=== PATIENT | male | born 1975 | race Caucasian/White ===

== ENCOUNTER 2020-07-22 12:58 | Emergency (ER) | payer OTHER ==
[2020-07-22 13:06] VITALS: RESP 18
[2020-07-22] MEDS ORDERED: LIDOCAINE 1% INJ 10MG/ML (20 ML MDV) SQ ONE (13:18)
[2020-07-22] MEDS ORDERED: DIPH,PERTUS(ACELL)TETVAC-LF 0.5 ML VIAL IM ONE (13:18)
--- NOTE | 2020-07-22 13:52 | ED ---
Head Injury HPI - General Chief complaint: Head Injury Stated complaint: facial lac Time Seen by Provider: 07/22/20 13:13 Source: patient Mode of arrival: ambulatory Limitations: no limitations - History of Present Illness Initial comments: 44yo male presenting today for cc fall matter. Patient states he was around 5 rungs up when the ladder bottom slid out from under him and it fell to the ground. Patient states that he remained on the ladder and hit his face when the ladder met the ground. patietn states he did not lose consciousness, denies head ache, neck pain, visual changes, weakness sensation deficits, he denies use of anticoagulation therapy he denies nausea right wrist is slightly tender. Otherwise denies additional complaints/concerns/injuries. - Related Data Allergies/Adverse reactions: Allergies Allergy/AdvReac Type Severity Reaction Status Date / Time No Known Allergies Allergy Verified 07/22/20 13:06 Review of Systems ROS Statement: Those systems with pertinent positive or pertinent negative responses have been documented in the HPI. ROS Other: All systems not noted in ROS Statement are negative. Past Medical History Past Medical History: Hyperlipidemia History of Any Multi-Drug Resistant Organisms: None Reported Past Surgical History: Hernia Repair Past Psychological History: No Psychological Hx Reported Smoking Status: Current every day smoker Past Alcohol Use History: None Reported Past Drug Use History: None Reported General Exam - General Exam Comments Initial Comments: General: The patient is awake and alert, in no distress Eye: +3 mm pupils are equal, round and reactive to light, extra-ocular movements are intact. No nystagmus. There is normal conjunctiva bilaterally. No signs of icterus. Ears, nose, mouth and throat: There are moist mucous membranes and no oral lesions. No raccoon no Ma sign. TM WNL Neck: The neck is supple, there is no tenderness or JVD. No midline or paraspinal tenderness to palpation of the cervical spine. Cardiovascular: There is a regular rate and rhythm. No murmur, rub or gallop is appreciated. Respiratory: Lungs are clear to auscultation, respirations are non-labored, breath sounds are equal. No wheezes, stridor, rales, or rhonchi. Gastrointestinal: Soft, non-distended, non-tender abdomen without masses or organomegaly noted. There is no rebound or guarding present. Musculoskeletal: Normal ROM, with mild tenderness of the right wrist. No snuffbox tenderness. Strength 5/5. Sensation intact. Radial pulses equal bilaterally 2+. Able to make the okay fingers crossed thumbs-up and a possible digit and thumb no evidence of wristdrop. No elbow or shoulder pain remaining joints of the upper and lower extremities without pain or limitations in range of motion Neurological: A&O x 3. CN II-XII intact, There are no obvious motor or sensory deficits. Coordination appears grossly intact. Speech is normal. Skin: Skin is warm and dry and no rashes. 1.25cm laceration medial aspect of right eyebrow vertical orientation, slight irregularity but overall linear. no foreign body identified. Psychiatric: Cooperative, appropriate mood & affect, normal judgment. Limitations: no limitations Course Vital Signs 07/22/20 07/22/20 13:02 14:49 Temperature 97.8 F 98.9 F Pulse Rate 80 82 Respiratory 18 18 Rate Blood Pressure 139/91 144/98 O2 Sat by Pulse 95 97 Oximetry Procedures - Laceration Laceration #1 Consent Obtained: verbal consent Indication: laceration Site: face Size (cm): 0 (1.25cm) Description: linear Depth: simple, single layer Anesthetic Used: lidocaine 1% Anesthesia Technique: local infiltration Amount (mls): 1 Pre-repair: wound explored, irrigated extensively, deep structures intact Type of Sutures: nylon Size of Sutures: 6-0 Number of Sutures: 3 Technique: simple, interrupted Patient Tolerated Procedure: well, no complications Medical Decision Making - Medical Decision Making 44yo male presenting for facial laceration after ladder slipped. wrist pain (mild). X-ray negative no anatomical snuffbox tenderness. Neurovascularly intact. Patient's laceration repaired CT brain negative patient denied any other areas of injury there is no neck pain on physical examination midline or paraspinal. Full range of motion without difficulty. No raccoon or Ma sign. Tympanic membranes within normal limits no focal neurological deficits patient denies any injuries to the chest abdomen back or extremities besides right wrist. patient discharged appearing well. tdap updated. Disposition Clinical Impression: Facial laceration, Fall, Right wrist pain Disposition: HOME SELF-CARE Condition: Good Instructions (If sedation given, give patient instructions): Facial Laceration (ED) Additional Instructions: Please use medication as discussed. Please follow-up with family doctor in the next 2 days. Return for suture removal in 5 days. Please return to emergency room if the symptoms increase or worsen or for any other concerns. Is patient prescribed a controlled substance at d/c from ED?: No Referrals: Anais Sanchez MD [Primary Care Provider] - 1-2 days Time of Disposition: 14:14
--- NOTE | 2020-07-22 13:58 | CT ---
EXAMINATION TYPE: CT brain wo con DATE OF EXAM: 07/22/2020 COMPARISON: None HISTORY: 44-year-old male with pain after fall from ladder, multiple facial lacerations TECHNIQUE: Examination was done in axial plane without intravenous contrast. Coronal and sagittal r econstructions performed. CT DLP: 1043.4 mGycm Automated exposure control for dose reduction was used. FINDINGS: There is no evidence of acute intracranial hemorrhage, acute ischemic changes, mass, mass-effect, or extra-axial fluid collection. There is no effacement of cerebral sulci or basal subarachnoid cister ns. There is no hydrocephalus. There is no midline shift. Dacosta-white matter distinction is preserv ed. Paranasal sinuses and mastoid air cells are well pneumatized. Orbits and globes are intact. IMPRESSION: No acute intracranial abnormality seen.
--- NOTE | 2020-07-22 14:14 | XR ---
EXAMINATION TYPE: XR wrist complete RT DATE OF EXAM: 07/22/2020 COMPARISON: NONE HISTORY: 44-year-old male with pain after fall today TECHNIQUE: 4 views FINDINGS: Some small cystic change noted within the lunate, likely intraosseous ganglion. No acute fracture, thao bluxation, or dislocation seen. IMPRESSION: No acute osseous abnormality seen.
[2020-07-22 14:53] VITALS: BP 144/98; PULSE 82; TEMP 98.9
== END 2020-07-22 14:49 | disposition home or self-care (01) ==
LOC: EC 12:58
DX: S01.81XA Laceration without foreign body of other part of head, initial encounter (principal); M25.531 Pain in right wrist; E78.5 Hyperlipidemia, unspecified; F17.200 Nicotine dependence, unspecified, uncomplicated; W19.XXXA Unspecified fall, initial encounter
CPT/HCPCS: 73110; 70450; 90715; 99284; 12011; 90471; J2001

== ENCOUNTER → 2022-06-20 | Outpatient (CLI) | payer OTHER ==
--- NOTE | 2022-06-20 11:21 | XR ---
EXAMINATION TYPE: XR knee complete RT DATE OF EXAM: 06/20/2022 10:49 AM INDICATION: Patient age:Male; 46 years old; Reason for study: M23.91; COMPARISON: None. TECHNIQUE: The Right knee(s) was examined in Frontal, lateral and oblique projections. FINDINGS: No evidence of any acute osseous pathology, soft tissue swelling, or joint effusion is no richard. Minimal Tricompartmental osteophyte formation involving the femoral condyles, tibial plateau and pat gamaliel. Mild joint space narrowing. IMPRESSION: 1. No acute osseous pathology. 2. Mild tricompartmental osteoarthritic changes.
[2022-06-20 17:53] LABS: Chol/HDL Ratio 4.43 Ratio; LDL Cholesterol,Calculated 124.5 mg/dL (0.0-131.0)
== END | disposition home or self-care (01) ==
LOC: LABWHC1 10:13 → EDSTATUS 12:02
PROVIDERS: ATTEND Family Medicine
DX: Z12.5 Encounter for screening for malignant neoplasm of prostate (principal); Z11.4 Encounter for screening for human immunodeficiency virus [HIV]; E78.5 Hyperlipidemia, unspecified; M23.91 Unspecified internal derangement of right knee
CPT/HCPCS: 36415; 80061; 83036; 84153; 87390

== ENCOUNTER → 2022-12-21 | Outpatient (CLI) | payer OTHER ==
[2022-12-21 14:24] LABS: ALT 23 U/L (10-49); AST 21 U/L (14-35); Albumin 4.8 d/dL (3.8-4.9); Albumin/Globulin Ratio 2.18 Ratio (1.60-3.17); Alkaline Phosphatase 98 U/L (41-126); Blood Urea Nitrogen 16.4 mg/dL (9.0-27.0); Calcium 9.7 mg/dL (8.7-10.3); Carbon Dioxide 26.3 mmol/L (21.6-31.8); Chloride 106 mmol/L (96-109); Chol/HDL Ratio 4.83 Ratio; Globulin 2.2 d/dL (1.6-3.3); Glucose 86 mg/dL (70-110); LDL Cholesterol,Calculated 110.6 mg/dL (0.0-131.0); Potassium 5.1 mmol/L (3.5-5.5); Sodium 142 mmol/L (135-145); Total Bilirubin 0.4 mg/dL (0.3-1.2)
== END | disposition home or self-care (01) ==
LOC: LABWHC1 08:53
PROVIDERS: ATTEND Family Medicine
DX: E78.5 Hyperlipidemia, unspecified (principal)
CPT/HCPCS: 36415; 80053; 80061

== ENCOUNTER 2023-02-06 18:07 | Emergency (ER) | payer OTHER ==
[2023-02-06 19:04] VITALS: TEMP 98.3
[2023-02-06] MEDS ORDERED: KETOROLAC 15 MG/ML 1 ML VIAL IM STA (20:15)
[2023-02-06] MEDS ORDERED: methylPREDNISolone SOD SUCCI 125 MG/2 ML VIAL IM ONE (20:15)
--- NOTE | 2023-02-06 20:15 | ED ---
Lower Extremity Injury HPI - General Chief Complaint: Extremity Injury, Lower Stated Complaint: R foot pain Time Seen by Provider: 02/06/23 19:44 Source: patient Mode of arrival: ambulatory Limitations: no limitations - History of Present Illness Initial Comments: 47-year-old male presented with chief complaint of right foot pain. Pain is mainly at the MCP joint, has been ongoing for the last 4 days. No injury or trauma. He admits to some redness and swelling. No fevers or chills. No nausea or vomiting. No history of gout. - Related Data Previous Rx's Medication Instructions Recorded Indomethacin [Indocin] 50 mg PO TID #21 cap 02/06/23 Allergies Allergy/AdvReac Type Severity Reaction Status Date / Time No Known Allergies Allergy Verified 02/06/23 19:03 Review of Systems ROS Statement: Those systems with pertinent positive or pertinent negative responses have been documented in the HPI. ROS Other: All systems not noted in ROS Statement are negative. Past Medical History Past Medical History: Hyperlipidemia History of Any Multi-Drug Resistant Organisms: None Reported Past Surgical History: Hernia Repair Past Psychological History: No Psychological Hx Reported Smoking Status: Current every day smoker Past Alcohol Use History: None Reported Past Drug Use History: None Reported General Exam Limitations: no limitations General appearance: alert, in no apparent distress Head exam: Present: atraumatic, normocephalic, normal inspection Eye exam: Present: normal appearance, EOMI Neck exam: Present: normal inspection, full ROM Respiratory exam: Absent: respiratory distress Right Foot/Toe exam: Present: full ROM, tenderness, swelling, erythema Neurovascular tendon exam: Present: no vascular compromise Neurological exam: Present: alert, oriented X3, CN II-XII intact Psychiatric exam: Present: normal affect, normal mood Skin exam: Present: warm, dry, intact, normal color. Absent: rash Course Vital Signs 02/06/23 02/06/23 19:00 20:23 Temperature 98.3 F Pulse Rate 87 69 Respiratory 20 18 Rate Blood Pressure 126/90 138/94 O2 Sat by Pulse 98 99 Oximetry Medical Decision Making - Medical Decision Making Was pt. sent in by a medical professional or institution (Dr. PA, SPECIAL PROCEDURES TECHNOLOGIST, urgent care, hospital, or detention...) When possible be specific @ -No Did you speak to anyone other than the patient for history (EMS, parent, family, police, friend...)? What history was obtained from this source @ -No Did you review nursing and triage notes (agree or disagree)? Why? @ -I reviewed and agree with nursing and triage notes Were old charts reviewed (outside hosp., previous admission, EMS record, old EKG, old radiological studies, urgent care reports/EKG's, detention records)? Report findings @ -No old charts were reviewed Differential Diagnosis (chest pain, altered mental status, abdominal pain women, abdominal pain men, vaginal bleeding, weakness, fever, dyspnea, syncope, headache, dizziness, GI bleed, back pain, seizure, CVA, palpatations, mental health, musculoskeletal)? @ -Differential Musculoskeletal Muscular strain, contusion, ligament sprain, fracture, arthritis, septic arthritis, bursitis, cellulitis, muscle spasm, nerve compression, DVT, arterial occlusion, herpes zoster, electrolyte abnormality, tumor.... This is not meant to be in all inclusive list EKG interpreted by me (3pts min.). @ -As above X-rays interpreted by me (1pt min.). @ -None done CT interpreted by me (1pt min.). @ -None done U/S interpreted by me (1pt. min.). @ -None done What testing was considered but not performed or refused? (CT, X-rays, U/S, labs)? Why? @ -None What meds were considered but not given or refused? Why? @ -None Did you discuss the management of the patient with other professionals (professionals i.e. , PA, SPECIAL PROCEDURES TECHNOLOGIST, lab, RT, psych nurse, social work instructor, crepe machine operator, teacher, parole or probation officer, nurse case management)? Give summary @ -No Was smoking cessation discussed for >3mins.? @ -No Was critical care preformed (if so, how long)? @ -No Were there social determinants of health that impacted care today? How? (Homelessness, low income, unemployed, alcoholism, drug addiction, transportation, low edu. Level, literacy, decrease access to med. care, detention, rehab)? @ -No Was there de-escalation of care discussed even if they declined (Discuss DNR or withdrawal of care, Hospice)? DNR status @ -No What co-morbidities impacted this encounter? (DM, HTN, Smoking, COPD, CAD, Cancer, CVA, ARF, Chemo, Hep., AIDS, mental health diagnosis, sleep apnea, morbid obesity)? @ -None Was patient admitted / discharged? Hospital course, mention meds given and route, prescriptions, significant lab abnormalities, going to OR and other pertinent info. @ -47-year-old male presented chief complaint of foot pain ongoing last 4 days. Erythema swelling and tenderness around the MCP joint. Appearance consistent with gout. Patient is treated with indomethacin. Educated on today's findings and the management plan. Follow-up with PCP. Report back to ER with any new or worsening symptoms. Discussed return parameters and answered all questions. Patient conveyed verbal understanding and agreed to the plan. I discussed this case in detail with my attending Dr. Olivares Undiagnosed new problem with uncertain prognosis? @ -No Drug Therapy requiring intensive monitoring for toxicity (Heparin, Nitro, Insulin, Cardizem)? @ -No Were any procedures done? @ -No Diagnosis/symptom? @ -Gout Acute, or Chronic, or Acute on Chronic? @ -Acute Uncomplicated (without systemic symptoms) or Complicated (systemic symptoms)? @ -Uncomplicated Side effects of treatment? @ -No Exacerbation, Progression, or Severe Exacerbation? @ -No Poses a threat to life or bodily function? How? (Chest pain, [place], [place], pneumonia, PE, COPD, DKA, ARF, appy, cholecystitis, CVA, Diverticulitis, Homicidal, Suicidal, threat to staff... and all critical care pts) @ -No Disposition Clinical Impression: Gout Disposition: HOME SELF-CARE Condition: Good Instructions (If sedation given, give patient instructions): Low Purine Diet (ED), Gout (ED) Additional Instructions: Follow-up with PCP. Report back to ER with any new or worsening symptoms. Take medication as prescribed. Prescriptions: Indomethacin [Indocin] 50 mg PO TID #21 cap Is patient prescribed a controlled substance at d/c from ED?: No Referrals: Rosendo Brian MD [Primary Care Provider] - 1-2 days Time of Disposition: 20:15
[2023-02-06 20:26] VITALS: BP 138/94; PULSE 69; RESP 18
== END 2023-02-06 20:50 | disposition home or self-care (01) ==
LOC: EC 18:07
DX: M10.9 Gout, unspecified (principal); F17.200 Nicotine dependence, unspecified, uncomplicated
CPT/HCPCS: 99283; 96372 ×2; J2930; J1885

== ENCOUNTER → 2023-05-25 | Outpatient (CLI) | payer SELFPAY ==
--- NOTE | 2023-05-25 13:02 | XR ---
EXAMINATION TYPE: XR knee complete LT DATE OF EXAM: 05/25/2023 COMPARISON: None HISTORY: Knee pain TECHNIQUE: 3 view left knee FINDINGS: No acute fracture or dislocation is evident. Joint spaces are preserved. No joint effusion is evident. Follow up exams can be performed 7-10 days from acute trauma for continued pain. MRI can be performed if evaluation of soft tissues appear benefit. IMPRESSION: 1. No acute osseous abnormality left knee
== END | disposition home or self-care (01) ==
LOC: RADXRMAIN 09:48
PROVIDERS: ATTEND Family Medicine
DX: M23.92 Unspecified internal derangement of left knee (principal); M25.562 Pain in left knee

== ENCOUNTER → 2023-09-01 | Outpatient (CLI) | payer OTHER ==
--- NOTE | 2023-09-01 11:25 | XR ---
EXAMINATION TYPE: XR shoulder complete LT DATE OF EXAM: 09/01/2023 CLINICAL HISTORY: pain COMPARISON: NONE TECHNIQUE: Three views of the left shoulder are obtained. FINDINGS: There is no acute fracture/dislocation evident. The acromioclavicular and glenohumeral melony int spaces appear within normal limits. The visualized ribs are intact and unremarkable. IMPRESSION: 1. There is no acute fracture or dislocation. ICD 10 NO FRACTURE, INITIAL EVALUATION
== END | disposition home or self-care (01) ==
LOC: RADXRMAIN 11:03
PROVIDERS: ATTEND Family Medicine
DX: M24.812 Other specific joint derangements of left shoulder, not elsewhere classified (principal)

== ENCOUNTER 2023-12-05 15:18 | Emergency (ER) | payer OTHER ==
[2023-12-05 15:28] VITALS: TEMP 98.1
--- NOTE | 2023-12-05 15:52 | ED ---
Lower Extremity Injury HPI - General Chief Complaint: Extremity Injury, Lower Stated Complaint: left foot pain Time Seen by Provider: 12/05/23 15:30 Source: patient, RN notes reviewed Mode of arrival: ambulatory Limitations: no limitations - History of Present Illness Initial Comments: 48-year-old male presents emergency department complaint of left foot pain. Patient states over the last 2 weeks she has had pain by his first and second MTP region. Denies any redness or swelling no trauma that he noted states has not improved. He is worse with ambulation or palpation of the area no paresthesias. Denies any rashes. - Related Data Previous Rx's Medication Instructions Recorded Indomethacin [Indocin] 50 mg PO TID #21 cap 02/06/23 predniSONE 50 mg PO DAILY #5 tab 12/05/23 Allergies Allergy/AdvReac Type Severity Reaction Status Date / Time No Known Allergies Allergy Verified 12/05/23 15:28 Review of Systems ROS Statement: Those systems with pertinent positive or pertinent negative responses have been documented in the HPI. ROS Other: All systems not noted in ROS Statement are negative. Past Medical History Past Medical History: Hyperlipidemia History of Any Multi-Drug Resistant Organisms: None Reported Past Surgical History: Hernia Repair Past Psychological History: No Psychological Hx Reported Smoking Status: Current every day smoker Past Alcohol Use History: None Reported Past Drug Use History: None Reported General Exam Limitations: no limitations General appearance: alert, in no apparent distress Head exam: Present: atraumatic, normocephalic, normal inspection Respiratory exam: Present: normal lung sounds bilaterally. Absent: respiratory distress, wheezes, rales, rhonchi, stridor Cardiovascular Exam: Present: regular rate, normal rhythm, normal heart sounds. Absent: systolic murmur, diastolic murmur, rubs, gallop, clicks Back exam: Present: other (Left foot there is tenderness at the first MTP region there is no erythema no rashes noted neurovascular tact) Neurological exam: Present: alert Skin exam: Present: warm, dry, intact, normal color. Absent: rash Course Vital Signs 12/05/23 15:26 Temperature 98.1 F Pulse Rate 90 Respiratory 18 Rate Blood Pressure 155/80 O2 Sat by Pulse 99 Oximetry Medical Decision Making - Medical Decision Making Was pt. sent in by a medical professional or institution (, PA, PULLER [employer], urgent care, hospital, or half-way...) When possible be specific @ -No Did you speak to anyone other than the patient for history (EMS, parent, family, police, friend...)? What history was obtained from this source @ -No Did you review nursing and triage notes (agree or disagree)? Why? @ -I reviewed and agree with nursing and triage notes Were old charts reviewed (outside hosp., previous admission, EMS record, old EKG, old radiological studies, urgent care reports/EKG's, half-way records)? Report findings @ -No old charts were reviewed Differential Diagnosis (chest pain, altered mental status, abdominal pain women, abdominal pain men, vaginal bleeding, weakness, fever, dyspnea, syncope, headache, dizziness, GI bleed, back pain, seizure, CVA, palpatations, mental health, musculoskeletal)? @ -Foot fracture, foot sprain, tendinitis, plan fasciitis EKG interpreted by me (3pts min.). @ -None X-rays interpreted by me (1pt min.). @ -X-ray left foot shows no acute osseous abnormality CT interpreted by me (1pt min.). @ -None done U/S interpreted by me (1pt. min.). @ -None done What testing was considered but not performed or refused? (CT, X-rays, U/S, labs)? Why? @ -None What meds were considered but not given or refused? Why? @ -None Did you discuss the management of the patient with other professionals (professionals i.e. , PA, P[employer]ER [employer], lab, RT, psych nurse, transition social worker, lathe set up operator, teacher, chief quality officer, porter sample case)? Give summary @ -No Was smoking cessation discussed for >3mins.? @ -No Was critical care preformed (if so, how long)? @ -No Were there social determinants of health that impacted care today? How? (Homelessness, low income, unemployed, alcoholism, drug addiction, transportat ion, low edu. Level, literacy, decrease access to med. care, snf, rehab)? @ -No Was there de-escalation of care discussed even if they declined (Discuss DNR or withdrawal of care, Hospice)? DNR status @ -No What co-morbidities impacted this encounter? (DM, HTN, Smoking, COPD, CAD, Cancer, CVA, ARF, Chemo, Hep., AIDS, mental health diagnosis, sleep apnea, morbid obesity)? @ -None Was patient admitted / discharged? Hospital course, mention meds given and route, prescriptions, significant lab abnormalities, going to OR and other pertinent info. @ -Did charge patient presented for left foot pain this may relate towards tendinitis x-ray is unremarkable there is no appearance of gout. Undiagnosed new problem with uncertain prognosis? @ -No Drug Therapy requiring intensive monitoring for toxicity (Heparin, Nitro, Insulin, Cardizem)? @ -No Were any procedures done? @ -No Diagnosis/symptom? @ -Left foot pain Acute, or Chronic, or Acute on Chronic? @ -Acute Uncomplicated (without systemic symptoms) or Complicated (systemic symptoms)? @ -Uncomplicated Side effects of treatment? @ -No Exacerbation, Progression, or Severe Exacerbation? @ -No Poses a threat to life or bodily function? How? (Chest pain, [place], [place], pneumonia, PE, COPD, DKA, ARF, appy, cholecystitis, CVA, Diverticulitis, Homicidal, Suicidal, threat to staff... and all critical care pts) @ -No Disposition Clinical Impression: Left foot pain, Tendinitis of left foot Disposition: HOME SELF-CARE Condition: Stable Instructions (If sedation given, give patient instructions): Foot Sprain (ED) Additional Instructions: Please return to the Emergency Department if symptoms worsen or any other concerns. Prescriptions: predniSONE 50 mg PO DAILY #5 tab Is patient prescribed a controlled substance at d/c from ED?: No Referrals: Rosendo Brian MD [Primary Care Provider] - 1-2 days Srinivas Ibanez DPM [Doctor of Osteopathic Medicine] - 1-2 days Time of Disposition: 16:11
--- NOTE | 2023-12-05 15:58 | XR ---
EXAMINATION TYPE: XR foot complete LT DATE OF EXAM: 12/05/2023 3:51 PM CLINICAL INDICATION:Male, 48 years old with history of pain; [facility] COMPARISON: None TECHNIQUE: XR foot complete LT examined in the AP, oblique, and lateral projections. FINDINGS: No evidence of any acute osseous pathology. No evidence of soft tissue swelling. IMPRESSION: No evidence of acute fracture. .
[2023-12-05 16:36] VITALS: BP 152/85; PULSE 81; RESP 16
== END 2023-12-05 16:36 | disposition home or self-care (01) ==
LOC: EC 15:18
DX: M77.8 Other enthesopathies, not elsewhere classified (principal); F17.200 Nicotine dependence, unspecified, uncomplicated
CPT/HCPCS: 99283

== ENCOUNTER 2024-10-31 10:39 | Emergency (ER) | payer BC, OTHER ==
[2024-10-31 10:45] VITALS: TEMP 97.5
--- NOTE | 2024-10-31 11:43 | XR ---
EXAMINATION TYPE: XR KUB DATE OF EXAM: 10/31/2024 COMPARISON: NONE HISTORY: Pain, constipation TECHNIQUE: Single upright KUB image of the abdomen is obtained FINDINGS: Small bowel demonstrates no evidence for dilatation or air fluid levels. Gas and fecal material is seen in non-distended colon. Mild colonic stool burden. No convincing evidence for pneumoperitoneum. No unusual calcifications. The lung bases are clear. The osseous structures are intact. IMPRESSION: Overall nonobstructive bowel gas pattern. [facility], , 10/31/2024 11:41 AM
--- NOTE | 2024-10-31 11:56 | ED ---
Abdominal Pain HPI - General Chief Complaint: Abdominal Pain Stated Complaint: Constipation Time Seen by Provider: 10/31/24 10:53 Source: patient, RN notes reviewed Mode of arrival: ambulatory Limitations: no limitations - History of Present Illness Initial Comments: 49-year-old male presents emergency department complaint of abdominal discomfort, constipation. Patient states he has not had a bowel movement 4 to 5 days. Patient states he was recently seen at [facility] had CT and lab work. Patient states he was told that he had constipation and ileus. Patient states he is passing gas denies any nausea vomiting no chest pain no fevers or chills no other complaints. - Related Data Previous Rx's Medication Instructions Recorded Indomethacin [Indocin] 50 mg PO TID #21 cap 02/06/23 predniSONE 50 mg PO DAILY #5 tab 12/05/23 Allergies Allergy/AdvReac Type Severity Reaction Status Date / Time No Known Allergies Allergy Verified 10/31/24 10:45 Review of Systems ROS Statement: Those systems with pertinent positive or pertinent negative responses have been documented in the HPI. ROS Other: All systems not noted in ROS Statement are negative. Past Medical History Past Medical History: Hyperlipidemia History of Any Multi-Drug Resistant Organisms: None Reported Past Surgical History: Hernia Repair Past Psychological History: No Psychological Hx Reported Smoking Status: Current every day smoker Past Alcohol Use History: None Reported Past Drug Use History: None Reported General Exam Limitations: no limitations General appearance: alert, in no apparent distress Head exam: Present: atraumatic, normocephalic, normal inspection Eye exam: Present: normal appearance, PERRL, EOMI. Absent: scleral icterus, conjunctival injection, periorbital swelling Respiratory exam: Present: normal lung sounds bilaterally. Absent: respiratory distress, wheezes, rales, rhonchi, stridor Cardiovascular Exam: Present: regular rate, normal rhythm, normal heart sounds. Absent: systolic murmur, diastolic murmur, rubs, gallop, clicks GI/Abdominal exam: Present: soft, normal bowel sounds. Absent: distended, tenderness, guarding, rebound, rigid Course Vital Signs 10/31/24 10/31/24 10:42 12:36 Temperature 97.5 F L Pulse Rate 86 98 Respiratory 16 18 Rate Blood Pressure 176/98 133/74 O2 Sat by Pulse 99 98 Oximetry Medical Decision Making - Medical Decision Making Was pt. sent in by a medical professional or institution (BARRINGTON Arias, COURT SUPERVISOR, urgent care, hospital, or intermediate...) When possible be specific @ -No Did you speak to anyone other than the patient for history (EMS, parent, family, police, friend...)? What history was obtained from this source @ -No Did you review nursing and triage notes (agree or disagree)? Why? @ -I reviewed and agree with nursing and triage notes Were old charts reviewed (outside hosp., previous admission, EMS record, old EKG, old radiological studies, urgent care reports/EKG's, intermediate records)? Report findings @ -Reviewed CT, laboratory studies from [facility] showing evidence of constipation normal laboratory CBC and comp Differential Diagnosis (chest pain, altered mental status, abdominal pain women, abdominal pain men, vaginal bleeding, weakness, fever, dyspnea, syncope, headache, dizziness, GI bleed, back pain, seizure, CVA, palpatations, mental health, musculoskeletal)? @ -Differential Abdominal Pain Men: Appendicitis, cholecystitis, diverticulosis, ischemic bowel, pancreatitis, hepatitis, UTI, gastroenteritis, AAA, incarcerated hernia, bowel obstruction, constipation, inflammatory bowel, hepatitis, peptic ulcer disease, splenic infarction, perforated viscus, testicular torsion, this is not meant to be an all-inclusive list EKG interpreted by me (3pts min.). @ -None X-rays interpreted by me (1pt min.). @ -[. KUB showing moderate constipation CT interpreted by me (1pt min.). @ -None done U/S interpreted by me (1pt. min.). @ -None done What testing was considered but not performed or refused? (CT, X-rays, U/S, labs)? Why? @ -None What meds were considered but not given or refused? Why? @ -None Did you discuss the management of the patient with other professionals (professionals i.e. BARRINGTON Arias, COURT SUPERVISOR, lab, RT, psych nurse, social services, warehouser, teacher, ecological technical officer, rn case management)? Give summary @ -No Was smoking cessation discussed for >3mins.? @ -No Was critical care preformed (if so, how long)? @ -No Were there social determinants of health that impacted care today? How? (Homelessness, low income, unemployed, alcoholism, drug addiction, transportation, low edu. Level, literacy, decrease access to med. care, penitentiary, rehab)? @ -No Was there de-escalation of care discussed even if they declined (Discuss DNR or withdrawal of care, Hospice)? DNR status @ -No What co-morbidities impacted this encounter? (DM, HTN, Smoking, COPD, CAD, Cancer, CVA, ARF, Chemo, Hep., AIDS, mental health diagnosis, sleep apnea, morbid obesity)? @ -None Was patient admitted / discharged? Hospital course, mention meds given and route, prescriptions, significant lab abnormalities, going to OR and other pertinent info. @Discharge patient was given magnesium citrate and discharged in stable condition return parameters pietro. Patient has no localized abdominal tenderness. Undiagnosed new problem with uncertain prognosis? @ -No Drug Therapy requiring intensive monitoring for toxicity (Heparin, Nitro, Insulin, Cardizem)? @ -No Were any procedures done? @ -No Diagnosis/symptom? @ -Constipation Acute, or Chronic, or Acute on Chronic? @ -Acute Uncomplicated (without systemic symptoms) or Complicated (systemic symptoms)? @ -[Uncomplicated Side effects of treatment? @ -No Exacerbation, Progression, or Severe Exacerbation? @ -No Poses a threat to life or bodily function? How? (Chest pain, USA, NH, pneumonia, PE, COPD, DKA, ARF, appy, cholecystitis, CVA, Diverticulitis, Homicidal, Suicidal, threat to staff... and all critical care pts) @ -No Disposition Clinical Impression: Constipation Disposition: HOME SELF-CARE Condition: Stable Instructions (If sedation given, give patient instructions): Constipation (ED) Additional Instructions: Please return to the Emergency Department if symptoms worsen or any other concerns. Is patient prescribed a controlled substance at d/c from ED?: No Referrals: Rosendo Brian MD [Primary Care Provider] - 1-2 days Time of Disposition: 11:56
[2024-10-31] MEDS: MAGNESIUM CITRATE 296 ML BOTTLE PO ONE (12:36)
[2024-10-31 12:37] VITALS: BP 133/74; PULSE 98; RESP 18
== END 2024-10-31 12:37 | disposition home or self-care (01) ==
LOC: EC 10:39
DX: K59.00 Constipation, unspecified (principal); F17.200 Nicotine dependence, unspecified, uncomplicated
CPT/HCPCS: 74018; 99284